=== PATIENT | male | born 1975 | race Caucasian/White ===

== ENCOUNTER 2017-06-20 12:31 | Emergency (ER) | payer SELFPAY ==
[2017-06-20 12:32] VITALS: BP 138/89; PULSE 82; RESP 15; TEMP 36.8; O2SAT 96; BMI 30.4
[2017-06-20 12:40] VITALS: RESP 19
[2017-06-20] MEDS: Albuterol 2.5 MG/3 ML VIAL.NEB. INHALATION (13:02)
[2017-06-20] MEDS: Ipratropium/Albuterol Sulfate 3 ML AMPUL.NEB INHALATION (13:02)
[2017-06-20 13:04] VITALS: PULSE 92; RESP 18
--- NOTE | 2017-06-20 13:25 | RAD_ITS ---
STUDY: X-RAY CHEST REASON FOR EXAM: Male, 41 years old. Cough and cold TECHNIQUE: 2 views of the chest were obtained COMPARISON: None. FINDINGS: Mild perihilar reticular opacities noted may relate with bronchitis. No lung consolidation or pneumothorax. No pleural effusion. Minimal subsegmental atelectasis in the lung bases. Degenerative changes in the thoracic spine. IMPRESSION: No evidence for focal airspace disease. Mild bronchitis suspected Electronically Signed: Mickey Stern, at 13:53 EDT Tel , Service support , RAD/Chest PA and Lateral
[2017-06-20 13:49] VITALS: BP 141/87; PULSE 101; O2SAT 92
--- NOTE | 2017-06-20 14:23 | ED.DCSUM_ITS ---
- ER Visit Summary Date of Service: 06/20/17 Chief Complaint: Cough History of Present Illness: The patient is a 41 M who presents with a cough. It is been present for 3 days. He complains of associated subjective fevers congestion rhinorrhea sputum. He states his chest is sore from coughing. He also has a history of chronic back pain and states that his coughing is increasing his back pain. No vomiting or diarrhea. He is a smoker. Physical Examination: Afebrile vitals are stable No distress Heart regular rate and rhythm Patient has diffuse inspiratory and expiratory wheezing but he has a normal respiratory rate no increased work of breathing able to speak in full sentences Abdomen soft Alert Test Results: Chest x-ray shows no focal infiltrate no pneumonia. Emergency Department Course and Treatment: Patient was given albuterol and Atrovent aerosols here. Even his significant wheezing we will give him a prescription for prednisone and an albuterol inhaler. [place] He was advised to follow-up with her primary care physician once he is home. He understands to return for new or worsening symptoms. He was discharged. Treatment Plan: [] Disposition: Discharge Impression: Bronchitis This note was generated with [employer] dictation software. It may contain incorrect words, spelling, and punctuation that were not noted in review of the chart prior to signing ED Disposition - Plan for ED Patient: Chief Complaint: Cold Sx Referrals: Care Physician,No Primary [Primary Care Provider] -
--- NOTE | 2017-06-20 14:23 | ED.DEP ---
ED Disposition - Plan for ED Patient: Chief Complaint: Cold Sx Instructions: Acute Bronchitis Prescriptions: Albuterol Inhaler [Ventolin Hfa] 1 - 2 puff INHALATION Q4H PRN PRN #1 inhaler PRN Reason: Wheezing Prednisone [Deltasone] 60 mg PO DAILY #15 tab Referrals: Care Physician,No Primary [Primary Care Provider] -
[2017-06-20 14:27] VITALS: BP 138/62; PULSE 75; RESP 16; O2SAT 98
== END 2017-06-20 14:30 | disposition home or self-care (01) ==
LOC: ED 13:18
PROVIDERS: Emergency Provider Emergency Medicine
DX: J40 Bronchitis, not specified as acute or chronic (principal); M54.9 Dorsalgia, unspecified; G89.29 Other chronic pain; G47.33 Obstructive sleep apnea (adult) (pediatric); F17.200 Nicotine dependence, unspecified, uncomplicated; Z79.899 Other long term (current) drug therapy
CPT/HCPCS: 71046; 94640; 99282

== ENCOUNTER 2017-06-22 06:26 | Emergency (ER) | payer SELFPAY ==
[2017-06-22 06:27] VITALS: BP 155/119; PULSE 66; RESP 20; TEMP 36.7; O2SAT 95; BMI 30.7
--- NOTE | 2017-06-22 07:14 | ED.VISSUMM ---
- ER Visit Summary Date of Service: 06/22/17 Chief Complaint: Vomiting and diarrhea History of Present Illness: The patient is a 41 M presenting with vomiting and diarrhea since yesterday. Patient has had 6 episodes of vomiting and 2 episodes of diarrhea. He states he has had blood in his emesis. He has a history of peptic ulcer disease. He denies blood in his stool. Complains of diffuse abdominal cramping. He has had subjective fever and chills. He has a history of chronic back pain and states the vomiting has flared up his back pain. He has no bowel or bladder incontinence. No numbness or weakness. Denies other complaints. Physical Examination: Vitals are stable. Patient is afebrile. Alert no acute distress. HEENT exam is unremarkable. Neck is supple. Lungs are clear and equal bilaterally. Heart is regular rate and rhythm. Abdomen is soft mild diffuse tenderness, no guarding or rebound Back: Bilateral paraspinal lumbar muscle tenderness. Extremities are unremarkable. Skin is warm and dry. No focal neurologic deficit. Normal strength and sensation Remainder of exam is unremarkable. Emergency Department Course and Treatment: Patient is given IV fluids, Zofran. CBC is white count of 14.0. Chemistries unremarkable other than glucose 127, BUN 19. INR 0.9. Abdominal series shows moderate amount of fecal material in colon. Patient refused NG tube placement. He states that he frequently has blood in his emesis and this is not unusual for him. He states the last couple of times he has thrown up it has been clear with no blood. On reevaluation patient continues to have nausea and low back pain. He is given a dose of morphine, Phenergan. On reevaluation, patient is now feeling improved. He is able to tolerate p.o. He is given prescription for Phenergan for home. Advised to follow-up with primary care physician. Advised return to ED if worsening complaints. Disposition: Discharge home Impression: Vomiting and diarrhea This note was generated with [employer] dictation software. It may contain incorrect words, spelling, and punctuation that were not noted in review of the chart prior to signing ED Disposition - Plan for ED Patient: Chief Complaint: Nausea/Vomiting/Diarrhea Referrals: Care Physician,No Primary [Primary Care Provider] -
[2017-06-22] MEDS: Ondansetron 4 MG/2 ML Vial IV (07:25)
[2017-06-22] MEDS: 0.9% Normal Saline 1,000 ML 1000 ML IV (07:25)
--- NOTE | 2017-06-22 07:32 | NURSING ---
PT REFUSED NG TUBE FOR VERIFICATION OF BLOOD IN EMESIS. XRAY WAS CANCELLED IT WAS ORDERED FOR PLACEMENT VERIFICATION.
[2017-06-22 07:40] LABS: International Normalized Ratio 0.9; Prothrombin Time (Protime)PT. 12.6 SECONDS (11.7-14.9)
[2017-06-22 07:43] LABS: Absolute Lymphocyte Count 1.25 X10^3/ul (0.83-4.51); Basophil# 0.02 X10^3/uL; Basophil% 0.1 % (0-1); Hemoglobin 15.5 g/dl (13.0-16.5); Lymphocyte # 1.25 X10^3/ul (4.0); Lymphocyte % 8.9 % (19-41); Mean Corp Hgb Conc 34.4 g/gl (32-36); Mean Corpuscular Hgb 30.9 pg (27.0-32.0); Mean Corpuscular Volume 89.8 fL (80-94); Monocyte# 0.69 X10^3/uL; Monocyte% 4.9 % (0-10); Neutrophil % 85.7 % (47-70); Platelet Count 251 K/mm3 (150-450); RBC Distribution Width CV 13.5 % (11.6-14.6); RBC Distribution Width SD 44.4 fl (35.1-43.9); Red Blood Count 5.01 M/mm3 (4.6-6.2)
[2017-06-22 07:44] LABS: POSITIVE COUNT NO; POSITIVE DIFFERENTIAL NO; POSITIVE MORPHOLOGY NO
[2017-06-22 07:47] LABS: AST(SGOT) 16 U/L (15-37); Alanine Aminotransfer ALT/SGPT 31 U/L (16-61); Albumin, Serum 3.7 g/dL (3.2-5.0); Alkaline Phosphatase 45 U/L (45-117); Anion Gap 9 (5-15); BUN 19 mg/dL (7-18); BUN/Creat Ratio 19.7 RATIO (10-20); Bilirubin, Direct 0.05 mg/dL (0.00-0.30); Calcium,Total 8.6 mg/dL (8.5-10.1); Chloride 108 mmol/L (98-107); Creatinine, Serum 0.96 mg/dL (0.70-1.30); EST Glomerular Filtration Rate 92 mL/min (>60); Est Glom Filt Rate - Afr Amer 111 mL/min (>60); Estimated Creatinine Clearance 110.03 ml/min; Globulin 3.7 g/dL (2.2-4.2); Glucose 127 mg/dL (74-106); Lipase 86 U/L (73-393); Potassium 4.1 mmol/L (3.5-5.1); Protein, Total 7.4 g/dL (6.4-8.2); Sodium Level 143 mmol/L (136-145)
--- NOTE | 2017-06-22 08:00 | RAD_ITS ---
STUDY: X-RAY - ACUTE ABDOMINAL SERIES REASON FOR EXAM: Male, 41 years old. Nausea and vomiting. Diarrhea. TECHNIQUE: Single view of the chest. Supine, and erect view(s) of the abdomen were obtained. COMPARISON: Comparison is made with prior chest radiograph dated June 20, 2017. FINDINGS: The lungs are clear and expanded. Normal size heart. Normal mediastinum and johanna. Normal visualized pulmonary arteries. Normal visualized aortic arch and descending thoracic aorta. There is a moderate amount of colonic fecal material. There are multiple calcified phleboliths. Normal visualized osseous structures. RAD/Acute Abdomen Inc Chest IMPRESSION: Moderate amount of fecal material is seen in the colon. Electronically Signed: Lenard Molina MD at 8:29 EDT Tel [phone], Service support ,
[2017-06-22] MEDS: Morphine 4 MG/ML Syringe IV (09:08)
[2017-06-22] MEDS: proMETHazine 25 MG/ML Syringe 6.25 MG IV (09:08)
--- NOTE | 2017-06-22 10:26 | ED.DEP ---
ED Disposition - Plan for ED Patient: Chief Complaint: Nausea/Vomiting/Diarrhea Instructions: ED Vomiting Diarrhea Nonspecific Ad Prescriptions: proMETHazine tablet [Phenergan] 25 mg PO Q6H PRN PRN #10 tablet PRN Reason: Nausea Referrals: Care Physician,No Primary [Primary Care Provider] -
[2017-06-22 10:45] VITALS: BP 147/89; PULSE 67; RESP 16; O2SAT 96
== END 2017-06-22 11:02 | disposition home or self-care (01) ==
LOC: ED 07:29
PROVIDERS: Emergency Provider Emergency Medicine
DX: R11.2 Nausea with vomiting, unspecified (principal); R19.7 Diarrhea, unspecified; M54.9 Dorsalgia, unspecified; G89.29 Other chronic pain; F31.9 Bipolar disorder, unspecified; F43.10 Post-traumatic stress disorder, unspecified; X58.XXXA Exposure to other specified factors, initial encounter; Y93.9 Activity, unspecified; Y92.9 Unspecified place or not applicable; Y99.9 Unspecified external cause status; Z79.899 Other long term (current) drug therapy; Z87.891 Personal history of nicotine dependence; Z87.11 Personal history of peptic ulcer disease
CPT/HCPCS: 74022; 80048; 80076; 83690; 85025; 85610; 96361; 96374; 96375; 99283; J7030; A4216; J2405

== ENCOUNTER 2017-06-24 09:13 | Emergency (ER) | payer SELFPAY ==
[2017-06-24 09:14] VITALS: BP 137/93; PULSE 82; RESP 16; TEMP 36.7; O2SAT 95; BMI 30.4
[2017-06-24 09:47] LABS: Absolute Lymphocyte Count 3.05 X10^3/ul (0.83-4.51); Absolute Neutrophil Count 6.9 X10^3/uL (2.0-7.7); Basophil# 0.06 X10^3/uL; Basophil% 0.5 % (0-1); Eosinophil# 0.02 X10^3/uL; Eosinophils% 0.2 % (0-5); Hematocrit 44.8 % (40-54); Hemoglobin 15.1 g/dl (13.0-16.5); Lymphocyte # 3.05 X10^3/ul (4.0); Lymphocyte % 27.8 % (19-41); Mean Corp Hgb Conc 33.7 g/gl (32-36); Mean Corpuscular Hgb 30.3 pg (27.0-32.0); Mean Platelet Vol. 9.4 fl (6.2-12.0); Monocyte# 0.85 X10^3/uL; Monocyte% 7.7 % (0-10); Neutrophil # 6.89 X10^3/uL (2.7-7.7); Neutrophil % 62.7 % (47-70); Platelet Count 226 K/mm3 (150-450); RBC Distribution Width CV 13.6 % (11.6-14.6); RBC Distribution Width SD 43.7 fl (35.1-43.9); Red Blood Count 4.98 M/mm3 (4.6-6.2)
[2017-06-24 09:48] LABS: POSITIVE COUNT NO; POSITIVE DIFFERENTIAL NO; POSITIVE MORPHOLOGY NO
[2017-06-24] MEDS: Ondansetron 4 MG/2 ML Vial IV (09:53)
[2017-06-24] MEDS: 0.9% Normal Saline 1,000 ML 1000 ML IV ×2 (09:53→10:46)
[2017-06-24 09:59] LABS: Anion Gap 7 (5-15); BUN 13 mg/dL (7-18); BUN/Creat Ratio 13.1 RATIO (10-20); Calcium,Total 8.6 mg/dL (8.5-10.1); Chloride 103 mmol/L (98-107); Creatinine, Serum 0.99 mg/dL (0.70-1.30); EST Glomerular Filtration Rate 89 mL/min (>60); Est Glom Filt Rate - Afr Amer 108 mL/min (>60); Glucose 85 mg/dL (74-106); Potassium 3.4 mmol/L (3.5-5.1); Sodium Level 140 mmol/L (136-145)
[2017-06-24] MEDS: Morphine 4 MG/ML Syringe IV (10:03)
[2017-06-24] MEDS: oxyCODONE 5 MG Tablet 10 MG PO (11:42)
[2017-06-24 11:44] VITALS: BP 142/102; PULSE 73; RESP 16; O2SAT 96
--- NOTE | 2017-06-24 12:12 | ED.DCSUM_ITS ---
- ER Visit Summary Date of Service: 06/24/17 Chief Complaint: Dizzy and vomiting History of Present Illness: The patient is a 41 M who was seen on June 20 for cough and bronchitis-like symptoms. This progressed to nausea and vomiting. He was seen on the for this and was given Phenergan. Patient states his symptoms are not improving he feels dehydrated. History of chronic back pain that has worsened with the cough in the retching from vomiting. Physical Examination: Vital signs are unremarkable. Patient sitting upright in bed no acute distress. He does have dry mucous membranes. Heart is regular rate and rhythm. No lung sounds are clear. Abdomen is soft nontender. Hypoactive bowel sounds are noted throughout. Test Results: CBC and chemistry studies are significant only for potassium of 3.4. Emergency Department Course and Treatment: Patient was given 2 L of IV fluid along with Zofran and morphine. 40 mEq of potassium chloride were given orally along with a p.o. dose of oxycodone for recurrent pain. At this time is tolerating p.o. He will be given Zofran to take in addition to his Phenergan. He will be given 8 tabs of Percocet only for pain. Treatment Plan: [] Disposition: Discharge Impression: 1. Vomiting, improved 2. Hypokalemia This note was generated with [employer] dictation software. It may contain incorrect words, spelling, and punctuation that were not noted in review of the chart prior to signing ED Disposition - Plan for ED Patient: Chief Complaint: Dizziness Referrals: Care Physician,No Primary [Primary Care Provider] -
--- NOTE | 2017-06-24 12:13 | ED.DEP ---
ED Disposition - Plan for ED Patient: Disposition: Home or Assisted Living Chief Complaint: Dizziness Instructions: ED Dehydration, ED Nausea Vomiting Prescriptions: Oxycodone HCl/Acetaminophen [Percocet 5/325] 1 tablet PO Q6H PRN PRN 3 Days #8 tablet PRN Reason: Pain Ondansetron [Zofran Odt] 4 mg PO Q8H PRN PRN #10 tab PRN Reason: Nausea Referrals: Erick Cervantes MD [STAFF PHYSICIAN] - As Needed
[2017-06-24 12:21] VITALS: PULSE 88; RESP 16; O2SAT 97
== END 2017-06-24 12:22 | disposition home or self-care (01) ==
PROVIDERS: Emergency Provider Emergency Medicine
DX: R11.2 Nausea with vomiting, unspecified (principal); E87.6 Hypokalemia; M54.9 Dorsalgia, unspecified; M79.1 Myalgia; G89.29 Other chronic pain; Z72.0 Tobacco use; Z79.899 Other long term (current) drug therapy
CPT/HCPCS: 80048; 85025; 96361; 96374; 96375; 99284; J7030; A4216; J2405